=== PATIENT | female | born 1955 | race Caucasian/White ===

== ENCOUNTER 2018-09-04 12:31 | Inpatient (IN) | payer BC, MEDICAID, OTHER ==
--- NOTE | 2018-09-04 12:53 | C.PDOC ---
History Of Present Illness 62 y/o female, with PMHx of HTN, presents to ED c/o cold, cough, congestion, fever, and chills for the last 2 weeks. Pt reports chest pain from excessive coughing and has associated shortness of breath. Notes she recently traveled fr [place] ([place] via [place] Denies dizziness, syncope, leg swelling, weight loss, night sweats, sick contact, nausea, or vomiting. States she has had a decreased appetite since getting sick. Time Seen by Provider: 09/04/18 12:33 Chief Complaint (Nursing): Shortness Of Breath History Per: Patient History/Exam Limitations: no limitations Past Medical History Reviewed: Historical Data, Nursing Documentation, Vital Signs Vital Signs: Last Vital Signs Temp 100.3 F H 09/04/18 12:40 Pulse 117 H 09/04/18 12:40 Resp 18 09/04/18 12:40 BP 155/80 H 09/04/18 12:40 Pulse Ox 96 09/04/18 12:40 - Medical History PMH: HTN Family History: States: Unknown Family Hx - Social History Hx Tobacco Use: No Hx Alcohol Use: Yes Hx Substance Use: No Review Of Systems Except As Marked, All Systems Reviewed And Found Negative. Constitutional: Negative for: Fever, Chills ENT: Positive for: Nose Congestion Cardiovascular: Positive for: Chest Pain Respiratory: Positive for: Cough, Shortness of Breath Gastrointestinal: Negative for: Nausea, Vomiting, Abdominal Pain Neurological: Negative for: Headache, Dizziness Physical Exam - Physical Exam Additional Physical Exam Comments: Gen: Uncomfortable. cooperative, ill appearing, non-toxic. Head: NCAT. HEENT: EYES: PERRL, EOMI, conjunctiva clear, MOUTH: moist MM, posterior pharynx without erythema or exudate, uvula midline. CV: (+) S1S2, Tachycardic, no M/G/R LUNGS: Decreased breath sounds, No W/R/R Abd: Soft, NTTP, no guarding, rebound or rigidity. Neuro: AAO x 3, GCS 15, CN 2-12 intact, motor and sensory grossly intact, 5/5 muscle strength B/L UE's and LE's. ext: no cyanosis or edema ED Course And Treatment - Laboratory Results Result Diagrams: 09/04/18 13:09 09/04/18 13:09 ECG: Interpreted By Me, Viewed By Me ECG Rhythm: Sinus Tachycardia Interpretation Of ECG: Normal intervals, normal axis. No ST/T wave changes. Rate From EC (bpm) O2 Sat by Pulse Oximetry: 96 (RA) Pulse Ox Interpretation: Normal Medical Decision Making Medical Decision Makin:[address] Collier about pt. 14:44 Dr. Collier agree to admit pt Disposition Discussed With Dr.: Jordan Collier Doctor Will See Patient In The: Hospital Counseled Patient/Family Regarding: Studies Performed, Diagnosis - Disposition Disposition: HOSPITALIZED Disposition Time: 14:40 Condition: STABLE - Clinical Impression Clinical Impression: Pneumonia, Dehydration, Influenza A - Scribe Statement The provider has reviewed the documentation as recorded by the Scribe KP All medical record entries made by the Scribe were at my direction and personally dictated by me. I have reviewed the chart and agree that the record accurately reflects my personal performance of the history, physical exam, medical decision making, and the department course for this patient. I have also personally directed, reviewed, and agree with the discharge instructions and disposition.
[2018-09-04] MEDS ORDERED: Sodium Chloride 0.9% 1,000 ML IV ONE (13:02)
[2018-09-04 13:13] LABS: BASO % 0.3 % (0.0-2.0); HEMOGLOBIN 11.9 g/dL (11.0-16.0); LYMPH # 0.5 K/uL (1.0-4.3); LYMPH % 5.2 % (20.0-40.0); MEAN CELL VOLUME 89.7 fL (81.0-99.0); MEAN CORPUSCULAR HEMOGLOBIN 30.1 pg (27.0-31.0); MEAN CORPUSCULAR HGB CONC 33.5 g/dL (33.0-37.0); MEAN PLATELET VOLUME 9.6 fL (7.2-11.7); MONO # 0.4 K/uL (0.0-0.8); MONO % 4.3 % (0.0-10.0); NEUT % 90.2 % (50.0-75.0); RBC 3.94 Mil/uL (3.80-5.20); RED CELL DISTRIBUTION WIDTH 14.9 % (11.5-14.5); WHITE BLOOD COUNT 9.9 K/uL (4.8-10.8)
[2018-09-04 13:18] LABS: PLATELET COUNT 205 K/uL (130-400)
--- NOTE | 2018-09-04 13:18 | RAD ---
Date of service: 09/04/2018 PROCEDURE: CHEST RADIOGRAPH, 1 VIEW HISTORY: Pneumonia COMPARISON: None available. FINDINGS: LUNGS: The lungs are well inflated. There is consolidation in the left lower lobe. The right lung is clear. PLEURA: No pneumothorax or right pleural effusion. Question of small left pleural effusion. CARDIOVASCULAR: The heart is normal in size. No aortic atherosclerotic calcifications present. OSSEOUS STRUCTURES: Within normal limits for the patient's age. VISUALIZED UPPER ABDOMEN: Normal. OTHER FINDINGS: None. IMPRESSION: Suspect left lower lobe pneumonia. Suspect small left pleural effusion. Follow-up after medical management is recommended to ensure complete resolution.
[2018-09-04] MEDS ORDERED: Sodium Chloride 0.9% 1,000 ML ONE (13:27)
[2018-09-04 13:30] LABS: ALB/GLOB RATIO 0.8 (1.0-2.1); ALBUMIN 3.3 g/dL (3.5-5.0); CALCIUM 8.1 mg/dl (8.6-10.4)
[2018-09-04] MEDS ORDERED: cefTRIAXone IV 1 gm in Dextros 50 ML IV STA (13:37)
[2018-09-04 13:40] LABS: TROPONIN I 0.016 ng/mL (0.00-0.120)
[2018-09-04 13:41] LABS: BANDS 2 % (0-2); LYMPHOCYTE 7 % (20-40); MONOCYTE 2 % (0-10); NEUTROPHIL 87 % (50-75); PLATELET ESTIMATE NORMAL (NORMAL); REACTIVE LYMPHOCYTES 2 % (0-0); TOTAL CELLS COUNTED 100
[2018-09-04 13:42] LABS: GIANT PLATELETS PRESENT
[2018-09-04] MEDS ORDERED: Azithromycin 500mg/250ML NS 500 MG/250 ML BAG IV STA (13:43)
[2018-09-04] MEDS ORDERED: cefTRIAXone 1 gm 1 GM/100 ML BAG IVPB ONE (14:34)
[2018-09-04] MEDS ORDERED: Azithromycin 500mg/250ML NS 500 MG/250 ML BAG IVPB ONE (14:38)
[2018-09-04 20:57] VITALS: RESP 20
[2018-09-04] MEDS: MethylPREDNISolone 40 mg Vial IVP SCH (23:59)
[2018-09-05] MEDS: Albuterol-Ipratrop 3 mg / 0.5 (3 ml) UD INH SCH ×4 (01:54→19:29)
[2018-09-05] MEDS: MethylPREDNISolone 40 mg Vial IVP SCH ×2 (06:25→14:21)
[2018-09-05] MEDS: Azithromycin 500 MG in Sodium Chloride 0.9% 250 ML IVPB SCH (14:21)
[2018-09-05] MEDS: Sodium Chloride 0.9% 1,000 ML IV SCH (16:00)
[2018-09-06] MEDS: Albuterol-Ipratrop 3 mg / 0.5 (3 ml) UD INH SCH ×4 (01:27→20:24)
--- NOTE | 2018-09-06 02:58 | HP ---
HISTORY OF PRESENT ILLNESS: This is a 62-year-old female with history of hypertension, was admitted through emergency room for persistent symptoms of cough, fever and shortness of breath that has been progressive over the last 2 days prior to this admission. The patient was [place] the [place] and she traveled back to the [place] 2 days prior to this admission. The patient tried to use cough remedies at home and analgesics and antipyretics, but her symptoms persisted and she presented to emergency room for evaluation, where she was found to have left lower lobe pneumonia and influenza A positive. The patient was admitted with droplet precaution, isolation, after she started on Tamiflu as well as IV antibiotics and IV fluids. The patient denied to have any chest pain. REVIEW OF SYSTEMS: Other review of system is positive for generalized weakness and easy fatigability and exertional shortness of breath. ALLERGIES: No known allergy. MEDICATIONS: Losartan 100 mg daily and Ziac 5/6.25 once a day. SOCIAL HISTORY: No history of smoking, EtOH or substance abuse. PAST MEDICAL HISTORY: Hypertension. FAMILY HISTORY: Noncontributory. Medications were reviewed and ordered as per MAR. PHYSICAL EXAMINATION: GENERAL: The patient is in bed, not in any cardiopulmonary distress at the time of this examination. VITAL SIGNS: Blood pressure of 146/85, temperature 97.6, respiratory rate 20 and pulse 90. HEENT: Pupils equal, reactive to light. Normal-appearing mucosa of the conjunctivae, oropharynx and nasal membrane mucosa. NECK: Supple. No JVD. No carotid bruit. No lymph node. No thyromegaly. CHEST: Lungs, bilateral symmetrical expansion, good air exchange, diffuse rhonchi bilaterally and left lower lobe basilar rales. CARDIOVASCULAR SYSTEM: PMI not localized. S1, S2. No additional sounds. ABDOMEN: Normoactive bowel sounds. No tenderness. No organomegaly. No masses. EXTREMITIES: No cyanosis, no clubbing, no edema. INDUSTRIAL TECHNOLOGIST: Alert, awake, oriented x2. No neurological deficit could be appreciated. ASSESSMENT: Pneumonia, community-acquired pneumonia, influenza A, hypertension, hyperactive airway disease. PLAN: Continue current IV antibiotics as well as Tamiflu, IV fluids as BUN and creatinine are elevated with creatinine 1.7, and monitor electrolytes. Continue droplet precautions, isolation. [facility] MD Nando [facility] # [id number]
[2018-09-06] MEDS: Sodium Chloride 0.9% 1,000 ML IV SCH ×3 (04:10→20:30)
[2018-09-06] MEDS: Azithromycin 500 MG in Sodium Chloride 0.9% 250 ML IVPB SCH (13:50)
[2018-09-06] MEDS ORDERED: Pneumococcal 23-Valent Vaccine IM ONE (14:00)
[2018-09-06] MEDS ORDERED: Influenza Vaccine 60 MCG/0.5 ML SYR (3 yr & up) IM ONE (14:00)
--- NOTE | 2018-09-06 15:04 | CARD ---
APPROVED REPORT Date of service: 09/04/2018 EKG Measurement Heart [id number] <Conclusion> Sinus tachycardia Otherwise normal ECG
--- NOTE | 2018-09-07 01:00 | PN ---
DATE: 09/06/2018 DAILY PROGRESS NOTE SUBJECTIVE: The patient is seen today, 09/06/2018. She still has cough and shortness of breath. PHYSICAL EXAMINATION: VITAL SIGNS: Blood pressure 156/91, temperature 97.6, respiratory rate 20 and pulse 70. HEENT: Pupils equal and reactive to light. Normal-appearing mucosa of the conjunctivae, oropharynx and nasal membrane mucosa. NECK: Supple. No JVD. No carotid bruit. No lymph node. No thyromegaly. CHEST AND LUNGS: Bilateral symmetrical expansion. Good air exchange. No rales. No rhonchi. CARDIOVASCULAR SYSTEM: PMI not localized. S1 and S2. No additional sounds. ABDOMEN: Normoactive bowel sounds. No tenderness. No organomegaly. No masses. EXTREMITIES: No cyanosis, no clubbing, no edema. CENTRAL NERVOUS SYSTEM: Alert, awake, oriented x2. No neurological deficit could be appreciated. ASSESSMENT: 1. Influenza A viral syndrome. 2. Left lower lobe pneumonia. 3. Hypertension. 4. Increased blood urea nitrogen and creatinine. PLAN: Continue current medications and IV fluid. Repeat blood workup in the morning. Jordan Collier MD
[2018-09-07] MEDS: Albuterol-Ipratrop 3 mg / 0.5 (3 ml) UD INH SCH ×3 (01:38→13:59)
[2018-09-07 07:17] LABS: BASO % 0.1 % (0.0-2.0); EOS % 0.1 % (0.0-4.0); HEMOGLOBIN 11.1 g/dL (11.0-16.0); LYMPH # 1.2 K/uL (1.0-4.3); MEAN CELL VOLUME 89.4 fL (81.0-99.0); MEAN CORPUSCULAR HEMOGLOBIN 29.1 pg (27.0-31.0); MEAN CORPUSCULAR HGB CONC 32.6 g/dL (33.0-37.0); MEAN PLATELET VOLUME 10.1 fL (7.2-11.7); MONO # 1.8 K/uL (0.0-0.8); MONO % 14.2 % (0.0-10.0); NEUT # 9.3 K/uL (1.8-7.0); NEUT % 75.6 % (50.0-75.0); NRBC % 0.1 % (0.0-2.0); RBC 3.81 Mil/uL (3.80-5.20); RED CELL DISTRIBUTION WIDTH 14.7 % (11.5-14.5); WHITE BLOOD COUNT 12.3 K/uL (4.8-10.8)
[2018-09-07 07:31] LABS: ALB/GLOB RATIO 0.7 (1.0-2.1); ALBUMIN 2.7 g/dL (3.5-5.0); ALT/SGPT 79 U/L (9-52); AST/SGOT 110 U/L (14-36); BLOOD UREA NITROGEN 31 mg/dL (7-17); CALCIUM 8.4 mg/dl (8.6-10.4); GFR NON-AFRICAN AMERICAN 56
[2018-09-07] MEDS ORDERED: Potassium Chloride 20 mEq ER Tab PO STA (14:26)
[2018-09-07] MEDS: Azithromycin 500 MG in Sodium Chloride 0.9% 250 ML IVPB SCH (14:43)
[2018-09-07 16:20] VITALS: BP 150/80; PULSE 86; TEMP 98.1; O2SAT 93
--- NOTE | 2018-09-08 05:32 | DS ---
REASON FOR ADMISSION: This is a 62-year-old female with history of hypertension who was admitted for symptoms of productive cough, wheezing, and fever, found to have influenza A viral syndrome. COURSE OF HOSPITALIZATION: The patient was initially admitted and evaluated in the emergency room, and due to her left lower lobe pneumonia as well as the viral syndrome, the patient was admitted to the medical floor for further management. The patient was kept in droplet isolation and she was started on both Tamiflu as well as IV antibiotics. The patient was given also bronchodilators and her symptoms gradually improved. The patient wanted to go home, and she was discharged on both Tamiflu and Levaquin to be continued for another 5 days. FINAL DIAGNOSES: 1. Influenza A viral syndrome. 2. Left lower lobe pneumonia. 3. Hypertension. [facility] MD Nando
== END 2018-09-07 18:31 | disposition home or self-care (01) | DRG 195 ==
LOC: C.ER 12:31 → C.9E 14:51 → C.6T 19:46
PROVIDERS: ADMIT Internal Medicine; ATTEND Internal Medicine
DX: J09.X1 Influenza due to identified novel influenza A virus with pneumonia (principal); E86.0 Dehydration; I10 Essential (primary) hypertension; J45.909 Unspecified asthma, uncomplicated